=== PATIENT | female | born 1955 | race Caucasian/White ===

== ENCOUNTER 2017-01-07 09:37 | Emergency (ER) | payer BC ==
[2017-01-07 10:30] VITALS: BP 120/68
--- NOTE | 2017-01-07 10:49 | UC ---
Throat Pain/Nasal Mj HPI - HPI Summary HPI Summary: 61 female presents with complaints of sinus pressure, headache, and congestion for the past week that has seemed to worsen. Patient states she was unable to sleep last night due to the pressure being so significant. She thought it may have been allergies or a cold at first however her symptoms have only been worsening and she developed a low grade fever/chills this past Saturday01/04/17. Patient has tried taking Advil 200mg and Benedryl without relief. She denies nausea/vomiting and abdominal pain. Admits to a sore throat that improves as the day goes on. Denies ear pain. States pressure is above her teeth and behind eyes and worsens with bending and laying down. Did apply warm compress last night with some relief. PMHx significant for MVP, no other known history. - History of Current Complaint Chief Complaint: UCRespiratory Stated Complaint: SINUS COMPLAINT Time Seen by Provider: 01/07/17 10:32 Hx Obtained From: Patient ?: No Onset/Duration: Sudden Onset, Lasting Weeks - 1, Still Present, Worse Since Severity: Moderate Pain Intensity: 3 Pain Scale Used: 0-10 Numeric - ache, pressure Cough: None Associated Signs & Symptoms: Positive: Dysphagia, Sinus Discomfort, Nasal Discharge, Fever Related History: Seasonal Allergies - Allergies/Home Medications Allergies/Adverse Reactions: Allergies Allergy/AdvReac Type Severity Reaction Status Date / Time No Known Allergies Allergy Verified 01/07/17 10:30 Home Medications: Home Medications Ibuprofen [Ibuprofen 200 MG] 200 mg PO PRN 01/07/17 [History] PMH/Surg Hx/FS Hx/Imm Hx - Additional Past Medical History Additional PMH: No other PMHx besides MVP Cardiovascular History: Other Other Cardiovascular History: MVP - Surgical History Surgical History: Yes Surgery Procedure, Year, and Place: tonsillectomy - Family History Known Family History: Positive: None - Social History Alcohol Use: Daily Substance Use Type: None Smoking Status (MU): Never Smoked Tobacco - Immunization History Vaccination Up to Date: Yes Review of Systems Constitutional: Fever, Chills Skin: Negative Eyes: Negative ENT: Sore Throat, Nasal Discharge, Other - sinus pressure/congestion Respiratory: Shortness Of Breath Cardiovascular: Negative Gastrointestinal: Negative Musculoskeletal: Negative Neurological: Headache All Other Systems Reviewed And Are Negative: Yes Physical Exam Triage Information Reviewed: Yes Appearance: Well-Appearing, No Pain Distress, Well-Nourished Vital Signs: Initial Vital Signs Temp 99.5 F 01/07/17 10:25 Pulse 84 01/07/17 10:25 Resp 14 01/07/17 10:25 BP 120/68 01/07/17 10:25 Pulse Ox 99 01/07/17 10:25 low grade fever noted Vital Signs Reviewed: Yes Eyes: Positive: Conjunctiva Clear ENT: Positive: Normal ENT inspection, Hearing grossly normal, Pharynx normal, Nasal congestion - inflammation b/l nares noted, TMs normal - some serous effusion noted of right ear.. Negative: TM bulging, TM dull, TM red, Tonsillar swelling, Tonsillar exudate, Trismus, Muffled/hoarse voice Dental: Positive: Percussion Tenderness @ - maxillary and frontal b/l. Negative : Gross Decay/Caries @, Dental Fracture @, Abscess @, Cervical Lymphadenopathy Neck: Positive: Supple, Nontender, No Lymphadenopathy Respiratory: Positive: Chest non-tender, Lungs clear, Normal breath sounds, No respiratory distress, No accessory muscle use. Negative: Crackles, Rhonchi, Stridor, Wheezing Cardiovascular: Positive: RRR, No Murmur, Pulses Normal, Brisk Capillary Refill Bowel Sounds: Positive: Present Musculoskeletal: Positive: Strength Intact, ROM Intact, No Edema Neurological: Positive: Alert Psychological Exam: Normal Skin Exam: Normal Throat Pain/Nasal Course/Dx - Course Course Of Treatment: due to PE findings, HPI, and vital signs patient will be treated with antibiotic and flonase for acute sinusitis. aware of worsening signs and symptoms. recommend saline rinses, hot compresses, antihistamine and NSAIDs. Follow up with PCP. - Differential Dx/Diagnosis Differential Diagnosis/HQI/PQRI: Otitis Media, Pharyngitis, Sinusitis, URI Provider Diagnoses: Acute Sinusitis Discharge - Discharge Plan Condition: Stable Disposition: HOME Prescriptions: Amoxicillin/Clavulanate TAB* [Augmentin TAB 875*] 875 mg PO BID #20 tab Fluticasone NASAL * [Flonase *] 2 spray BOTH NARES DAILY #1 bottle Patient Education Materials: Sinusitis (ED), Warm Compress or Soak (ED) Referrals: [facility] [Outside] Additional Instructions: Take prescribed antibiotic as directed. If symptoms improve after 7 days you may discontinue antibiotic, if not finish entire 10 day dose. Recommend taking this with food. Use Flonase at bedtime while symptoms persist. Give the medication 2-3 times of use before relief. Also recommend saline nasal rinses to help clear out and moisturize airways. Also recommend taking Claritin or Xyzal, antihistamine to dry up extra mucus. Drink plenty of water, tylenol/advil for headache. Warm compresses over sinuses. Use humidifier at bedtime and take hot showers to breathe in steam and loosen congestion. Follow up with PCP. Return if symptoms worsen or do not improve.
== END 2017-01-07 11:08 | disposition home or self-care (01) ==
LOC: UCCORT 09:37
DX: J01.90 Acute sinusitis, unspecified (principal); I34.1 Nonrheumatic mitral (valve) prolapse
CPT/HCPCS: 99202; G0463

== ENCOUNTER 2017-05-10 10:48 | Emergency (ER) | payer BC ==
[2017-05-10 11:04] VITALS: BP 113/68
--- NOTE | 2017-05-10 11:18 | UC ---
Headache HPI - HPI Summary HPI Summary: 61 YEAR OLD FEMALE PRESENTS WITH NECK PAIN AND WORSENING OCCIPITAL HEADACHE. - History Of Current Complaint Chief Complaint: UCDizziness Stated Complaint: NECK PAIN Time Seen by Provider: 05/10/17 10:52 Hx Obtained From: Patient Hx Last Menstrual Period: 52 yrs old Onset/Duration: Sudden Onset Onset Of Symptoms: Sudden Pain Scale Used: 0-10 Numeric - 5 Location of Headache: Occipital Aggravating Factor(s): Exertion Allevating Factor(s): Nothing - Allergies/Home Medications Allergies/Adverse Reactions: Allergies Allergy/AdvReac Type Severity Reaction Status Date / Time seasonal Allergy Congestion Uncoded 05/10/17 11:04 Home Medications: Home Medications NK [No Home Medications Reported] 05/10/17 [History Confirmed 05/10/17] PMH/Surg Hx/FS Hx/Imm Hx Previously Healthy: Yes - Surgical History Surgical History: Yes Surgery Procedure, Year, and Place: tonsillectomy, nose cyst as child and 2013 - Family History Known Family History: Positive: None - Social History Alcohol Use: Daily Alcohol Amount: 2 Substance Use Type: None Smoking Status (MU): Former Smoker - Immunization History Vaccination Up to Date: Yes Review of Systems Constitutional: Negative Skin: Negative Eyes: Negative ENT: Negative Respiratory: Negative Cardiovascular: Negative Gastrointestinal: Negative Genitourinary: Negative Motor: Negative Neurovascular: Negative Musculoskeletal: Other: - NECK PAIN Neurological: Negative Psychological: Negative Is Patient Immunocompromised?: Yes All Other Systems Reviewed And Are Negative: Yes Physical Exam Triage Information Reviewed: Yes Vital Signs: Initial Vital Signs Temp 37.4 C 05/10/17 10:56 Pulse 84 05/10/17 10:56 Resp 18 05/10/17 10:56 BP 113/68 05/10/17 10:56 Pulse Ox 100 05/10/17 10:56 Vital Signs Reviewed: Yes Eye Exam: Normal ENT Exam: Normal Dental Exam: Normal Neck exam: Normal Neck: Positive: 1 Respiratory Exam: Normal Cardiovascular Exam: Normal Abdominal Exam: Normal Musculoskeletal: Positive: Other: - NECK PAIN Neurological Exam: Normal Neurological: Positive: Fatigued Psychological Exam: Normal Skin Exam: Normal Headache Course/Dx - Differential Dx/Diagnosis Provider Diagnoses: NECK PAIN. OCCIPITAL HEADACHE Discharge - Discharge Plan Condition: Stable Disposition: OTHER Discharge Disposition Comment: PATIENT SUGGESTED TO GO TO THE ER FOR SEVERE HEADACHE AND NECK PAIN. Patient Education Materials: Neck Pain (ED), Acute Headache (ED) Referrals: Marc Beth MD [Primary Care Provider] - Additional Instructions: PATIENT SUGGESTED TO GO TO THE ER FOR SEVERE HEADACHE AND NECK PAIN.
== END 2017-05-10 11:22 ==
LOC: UCCORT 10:48
DX: M54.2 Cervicalgia (principal); R51 Headache; Z87.891 Personal history of nicotine dependence
CPT/HCPCS: 99212; G0463

== ENCOUNTER 2019-06-11 19:02 | Emergency (ER) | payer BC ==
[2019-06-11 19:25] VITALS: BP 135/81
--- NOTE | 2019-06-11 19:49 | UC ---
Throat Pain/Nasal Mj HPI - HPI Summary HPI Summary: 3 to 4 day history of sore throat, congestion, ear fullness and cough. Poor sleep and now has laryngitis. - History of Current Complaint Chief Complaint: UCRespiratory Stated Complaint: ST Time Seen by Provider: 06/11/19 19:24 Hx Obtained From: Patient Hx Last Menstrual Period: 52 yrs old Onset/Duration: Gradual Onset, Lasting Days - 4 Pain Intensity: 8 Cough: Nonproductive Associated Signs & Symptoms: Positive: Dysphagia, Hoarseness, Sinus Discomfort, Nasal Discharge - Epiglottits Risk Factors Epiglottis Risk Factors: Negative - Allergies/Home Medications Allergies/Adverse Reactions: Allergies Allergy/AdvReac Type Severity Reaction Status Date / Time seasonal Allergy Congestion Uncoded 06/11/19 19:25 Home Medications: Home Medications Ibuprofen TAB* [Advil TAB*] 200 mg PO ONCE PRN 06/11/19 [History Confirmed 06/11] Ibuprofen TAB* [Motrin TAB* 400 MG] 400 mg PO ONCE PRN 06/11/19 [History Confirmed 06/11/19] PMH/Surg Hx/FS Hx/Imm Hx Previously Healthy: Yes - Surgical History Surgical History: Yes Surgery Procedure, Year, and Place: tonsillectomy, nose cyst as child and 2013 - Family History Known Family History: Positive: Non-Contributory - Social History Occupation: Employed Full-time Lives: With Family Alcohol Use: Daily Alcohol Amount: 2 Substance Use Type: None Smoking Status (MU): Former Smoker - Immunization History Vaccination Up to Date: Yes Review of Systems All Other Systems Reviewed And Are Negative: Yes Constitutional: Positive: Fatigue Skin: Positive: Negative ENT: Positive: Sore Throat, Ear Ache, Nasal Discharge Respiratory: Positive: Cough Cardiovascular: Positive: Negative Gastrointestinal: Positive: Negative Genitourinary: Positive: Negative Motor: Positive: Negative Neurovascular: Positive: Negative Musculoskeletal: Positive: Negative Neurological: Positive: Headache Psychological: Positive: Negative Is Patient Immunocompromised?: No Physical Exam Triage Information Reviewed: Yes Appearance: Ill-Appearing - looks mildly unwell, congested, Pain Distress - mild Vital Signs: Initial Vital Signs Temp 99.3 F 06/11/19 19:19 Pulse 81 06/11/19 19:19 Resp 20 06/11/19 19:19 BP 135/81 06/11/19 19:19 Pulse Ox 99 06/11/19 19:19 Eyes: Positive: Conjunctiva Clear ENT: Positive: Pharyngeal erythema, TMs normal Neck: Positive: Supple, Nontender, No Lymphadenopathy Respiratory: Positive: Lungs clear, Normal breath sounds Cardiovascular: Positive: RRR, No Murmur Musculoskeletal Exam: Normal Neurological Exam: Normal Psychological Exam: Normal Skin Exam: Normal Diagnostics - Laboratory Lab Results: rapid strep negative. Throat Pain/Nasal Course/Dx - Course Course Of Treatment: Symptomatic treatment of viral illness. - Differential Dx/Diagnosis Differential Diagnosis/HQI/PQRI: Laryngitis, Otitis Media, Pharyngitis, URI Provider Diagnosis: Laryngitis Discharge ED - Sign-Out/Discharge Documenting (check all that apply): Patient Departure All imaging exams completed and their final reports reviewed: No Studies - Discharge Plan Condition: Stable Disposition: HOME Patient Education Materials: Laryngitis (ED) Referrals: Viki Sinclair MD [Primary Care Provider] - Additional Instructions: Continue symptomatic treatment of viral illness, increasing rest and fluids. You can use ibuprofen 600mg up to 3 or 4 times per day. Nyquil use is fine for assisting with sleep. - Billing Disposition and Condition Condition: STABLE Disposition: Home
== END 2019-06-11 20:00 | disposition home or self-care (01) ==
LOC: UCCORT 19:02
DX: J04.0 Acute laryngitis (principal); B34.9 Viral infection, unspecified; R09.81 Nasal congestion; R53.83 Other fatigue; H92.09 Otalgia, unspecified ear; Z91.09 Other allergy status, other than to drugs and biological substances; Z87.891 Personal history of nicotine dependence
CPT/HCPCS: 87651; 99211; G0463